=== PATIENT | male | born 1950 | race Caucasian/White ===

== ENCOUNTER 2020-06-05 03:44 | Inpatient (IN) | payer OTHER ==
[~2020-06-05] VITALS: Ht 190.5 cm; Wt 120.9 kg
[2020-06-05] VITALS (16 sets, daily range): BP systolic 87–134; BP diastolic 53–88
--- NOTE | 2020-06-05 04:36 | EKG ---
[facility] ED [facility] [place] [id number] Test Date: 2020-06-05 Test Time: 04:02:00 Pat Name: ARCHANA VÁZQUEZ Department: Room: Gender: M Business Manager: : [id number] Requested By: ARTEMIO MCLEAN Order Number: [id number] Reading MD: Neville Pena MD Measurements Intervals [place] Rate: 102 P: DE: QRS: 138 QRSD: 132 T: -3 QT: 352 QTc: 463 Interpretive Statements ATRIAL FIBRILLATION RBBB Electronically Signed On 06-06-2020 12:54:48 CDT by Neville Pena MD
--- NOTE | 2020-06-05 04:37 | PHYS DOC ---
Past History Past Medical History: A-Fib, DVT, Hypertension, Other Additional Past Medical Histor: PULMONARY EMBOLUS Smoking: Quit Greater Than 1 Year Alcohol Use: None Drug Use: None Social History INMATE General Adult EDM: Chief Complaint: COUGH HPI: HPI: Patient is a 70-year-old inmate from [facility] was brought here for evaluation of cough and trouble breathing for several days. Patient al so complained of a sore on his left buttock since yesterday. Patient was tested positive for COVID-19 2 weeks ago, he was just transferred from [facility] to [facility] due to the COVID-19 infection yesterday. Patient denies any chest pain. Patient denies any fever. Patient has history of atrial fibrillation, hypertension, prostrate problem. Patient is on aspirin, terazosin, lisinopril. Patient is a former smoker, he is not on oxygen at home. Review of Systems: Review of Systems: Constitutional: Denies fever or chills Eyes: Denies change in visual acuity HENT: Denies nasal congestion or sore throat Respiratory: Positive for cough and shortness of breath Cardiovascular: Denies chest pain or edema GI: Denies abdominal pain, nausea, vomiting, bloody stools or diarrhea : Denies dysuria Musculoskeletal: Denies back pain or joint pain Integument: positive for buttock ulcer Neurologic: Denies headache, focal weakness or sensory changes Endocrine: Denies polyuria or polydipsia Lymphatic: Denies swollen glands Psychiatric: Denies depression or anxiety Heart Score: Risk Factors: Risk Factors: DM, Current or recent (<one month) smoker, HTN, HLP, family history of CAD, obesity. Risk Scores: Score 0 - 3: 2.5% MACE over next 6 weeks - Discharge Home Score 4 - 6: 20.3% MACE over next 6 weeks - Admit for Clinical Observation Score 7 - 10: 72.7% MACE over next 6 weeks - Early Invasive Strategies Physical Exam: PE: Constitutional: Well developed, well nourished, no acute distress, non-toxic appearance. [] HENT: Normocephalic, atraumatic, bilateral external ears normal, oropharynx moist, no oral exudates, nose normal. [] Eyes: PERRLA, EOMI, conjunctiva normal, no discharge. [] Neck: Normal range of motion, no tenderness, supple, no stridor. [] Cardiovascular: tachycardai, irregular rhythm, no murmur [] Lungs & Thorax: Bilateral breath sounds with crackles at lung bases, no respiratory distress. Abdomen: Bowel sounds normal, soft, no tenderness, no masses, no pulsatile masses. [] Skin: Warm, dry, an area of about 3 cm by 3cm decubitus ulcer, stage 2 on the medial part of left buttock, tender to palpation, no purulent discharge, no induration. Back: No tenderness, no CVA tenderness. [] Extremities: No tenderness, no cyanosis, no clubbing, ROM intact, bilateral lower extremities edema 2 plus. Neurologic: Alert and oriented X 3, normal motor function, normal sensory function, no focal deficits noted. [] Psychologic: Affect normal, judgement normal, mood normal. [] EKG: EKG: EKG was done at 4:02, heart rate of 102 beats per minutes, atrial fibrillation, no ST segment elevation Radiology/Procedures: Radiology/Procedures: Chest x-ray showed bilateral lower lobe infiltration more on the left side. Course & Med Decision Making: Course & Med Decision Making Pertinent Labs and Imaging studies reviewed. (See chart for details) Patient is a 70-year-old male with COVID-19 infection presented with cough trouble breathing. Patient also has cellulitis of the left buttock area. Discussed with Dr. Ibarra who agreed to admit the patient at this hospital. Dev Disclaimer: Dev Disclaimer: This electronic medical record was generated, in whole or in part, using a voice recognition dictation system. Departure Departure: Impression: Primary Impression: Pneumonia due to COVID-19 virus Additional Impressions: Hypoxia Cellulitis of buttock, left Disposition: ADMITTED INPATIENT Admitting Physician: Kev Maldonado Condition: STABLE Referrals: PCP,NO (PCP) Justification of Admission: Justification of Admission: Justification of Admission Dx: Yes (COVID-19 PNEUMONIA, HYPOXIA) ARTEMIO MCLEAN DO Jun 05, 2020 04:37
[2020-06-05 04:41] LABS: BASO % 0 % (0-3); EOS % 0 % (0-3); HEMATOCRIT 40.4 % (39.0-53.0); HEMOGLOBIN 13.7 g/dL (13.0-17.5); LYMPH # 0.5 x10^3/uL (1.0-4.8); LYMPH % 9 % (24-48); MEAN CORPUSCULAR HEMOGLOBIN 33 pg (25-35); MEAN CORPUSCULAR HGB CONC 34 g/dL (31-37); MEAN CORPUSCULAR VOLUME 96 fL (79-100); MONO # 0.7 x10^3/uL (0.0-1.1); MONO % 13 % (0-9); NEUT # 4.5 x10^3uL (1.8-7.7); NEUT % 78 % (31-73); PLATELET COUNT 115 x10^3/uL (140-400); RED CELL DISTRIBUTION WIDTH 12.7 % (11.5-14.5); WHITE BLOOD COUNT 5.8 x10^3/uL (4.0-11.0)
[2020-06-05 04:43] LABS: CALCIUM 8.6 mg/dL (8.5-10.1); GFR 74.1; POTASSIUM 3.6 mmol/L (3.5-5.1)
[2020-06-05 04:55] LABS: ALBUMIN 3.4 g/dL (3.4-5.0); ALBUMIN/GLOBULIN RATIO 1.2 (1.0-1.7); MAGNESIUM 1.7 mg/dL (1.8-2.4); TOTAL BILIRUBIN 1.7 mg/dL (0.2-1.0); TOTAL PROTEIN 6.3 g/dL (6.4-8.2)
[2020-06-05] MEDS ORDERED: IV NORMAL SALINE 500ML 500 ML ONE ×2 (05:28→05:31)
[2020-06-05] MEDS ORDERED: IV NORMAL SALINE 50ML 50 ML ONE (05:28)
[2020-06-05] MEDS ORDERED: PIPERACILLIN/TAZOBACTAM 3.375 GM VIAL IV ONE (05:29)
[2020-06-05] MEDS ORDERED: VANCOMYCIN 1 GM VIAL. ONE ×2 (05:29→05:31)
[2020-06-05] MEDS ORDERED: ONDANSETRON PF 4 MG/2 ML VIAL. IVP PRN (05:30)
[2020-06-05] MEDS ORDERED: VANCOMYCIN 1 GM in IV NORMAL SALINE 250ML 250 ML IV ONE (05:30)
[2020-06-05] MEDS ORDERED: PIPERACILLIN/TAZOBACTAM 3.375 GM in IV NORMAL SALINE 50ML 50 ML IV ONE (06:00)
[2020-06-05] MEDS ORDERED: HYDROcodone/APAP 5/325MG 1 TAB TABLET PO ONE (06:00)
[2020-06-05] MEDS ORDERED: IV NORMAL SALINE 1,000ML 1,000 ML IV SCH (06:00)
[2020-06-05] MEDS ORDERED: VANCOMYCIN 2 GM in IV NORMAL SALINE 500ML 500 ML IV ONE (06:00)
--- NOTE | 2020-06-05 07:32 | RAD ---
EXAM: AP View of the chest DATE: 06/05/2020 4:27 AM INDICATION: Reason: cough, positive for COVID-19 / Spl. Instructions: / History: COMPARISON: No Prior FINDINGS/ IMPRESSION: Cardiomegaly. Bilateral perihilar and lung base airspace opacities may represent atelectasis or developing consolidation. Small left pleural effusion. No pneumothorax. Constellation of findings may represent infectious/inflammatory process such as pneumonia although pulmonary edema is also a primary consideration. Electronically signed by: Ok Melara MD (06/05/2020 7:29 AM) [id number]
--- NOTE | 2020-06-05 08:40 | NUR ---
PATIENT ARRIVED TO UNIT VIA EMS. PATIENT IS ACCOMPANIED BY [facility] GUARD. PT IS CALM COMPLIANT AT TIME OF ASSESSMENT. VS OBTAINED AND ARE STABLE. DR CAUSEY IS NOTIFIED OF ADMISSION.ORDERERS RECEIVED FOR CTA, JACOB. PATIENT IS RESTING IN ROOM EATING BREAKFAST AT THIS TIME. WILL CONTINUE TO MONITOR.
[2020-06-05] MEDS ORDERED: PROAIR RESPICL90 MCG IH (10:40)
[2020-06-05] MEDS ORDERED: PRAZ5CAP2 PO (10:40)
[2020-06-05] MEDS ORDERED: ASPI325T8 PO (10:40)
[2020-06-05] MEDS ORDERED: LISI-338 PO (10:40)
[2020-06-05] MEDS ORDERED: FAMO20TA5 PO (10:40)
[2020-06-05] MEDS ORDERED: POTA20TA4 PO (10:40)
[2020-06-05] MEDS ORDERED: ALBU0.63 NEB (10:40)
[2020-06-05] MEDS ORDERED: FURO-68 PO (10:40)
[2020-06-05] MEDS ORDERED: METO-239 PO (10:40)
[2020-06-05] MEDS ORDERED: IOHEXOL 350 MG/ML 100 ML VIAL. IV ONE (11:00)
[2020-06-05] MEDS ORDERED: ENOXAPARIN 40 MG/0.4 ML SYRINGE. SQ SCH (11:00)
[2020-06-05] MEDS ORDERED: CONTRAST GIVEN. MC PRN (11:15)
[2020-06-05] MEDS ORDERED: NON FORMULARY ITEM (Albuterol Sulfate (Albuterol Sulfate Neb Soln) 1 VIAL) NEB SCH (13:45)
[2020-06-05] MEDS ORDERED: DIGOXIN IV 500 MCG/2 ML AMPUL. IV ONE (14:00)
[2020-06-05] MEDS: FUROSEMIDE 40 MG TABLET PO SCH (14:00)
[2020-06-05] MEDS: PIPERACILLIN/TAZOBACTAM 3.375 GM in IV NORMAL SALINE 50ML 50 ML IV SCH ×2 (14:00→22:13)
[2020-06-05] MEDS ORDERED: ALBUTEROL SULFATE 8GM INHALER. INH PRN (14:15)
--- NOTE | 2020-06-05 15:19 | NUR ---
PATIENTS HR REMAINS ELEVATED AFTER 500MCG OF DIGOXIN. PT IS STILL SOB, HAS A TEMP OF 101.1. PATIENT HAS BELONGINGS WITH SELF IN ICU. WILL CONTINUE TO MONITOR. REPORT GIVEN TO SLY PERRIN
[2020-06-05] MEDS ORDERED: dilTIAZem VIAL 125 MG in IV NORMAL SALINE 100ML 100 ML IV PRN (15:30)
[2020-06-05] MEDS ORDERED: dilTIAZem 25 MG/5 ML VIAL IVP ONE (15:30)
--- NOTE | 2020-06-05 15:49 | NUR ---
consulted [facility] cardiology, waiting for a phone call back.
--- NOTE | 2020-06-05 16:03 | RAD ---
Study: CT CHEST WITH CONTRAST - PULMONARY ANGIOGRAM History: Shortness of breath, rule out PE Comparison: Chest radiograph same day Technique: Helical CT of the chest performed after the administration of 100 mL Omnipaque 350 intravenous contrast and timed for angiographic evaluation of the pulmonary arteries per PE protocol. Coronal and sagittal 3D MIP reformations were obtained. One or more of the following individualized dose reduction techniques were utilized for this examination: 1. Automated exposure control 2. Adjustment of the mA and/or kV according to patient size 3. Use of iterative reconstruction technique. Findings: Pulmonary Arteries: Contrast bolus is adequate. There is no acute pulmonary embolism. The main pulmonary artery is normal in caliber. Heart/Systemic Vasculature: Mild cardiomegaly. No pericardial effusion. Thoracic aorta is normal in caliber. Mild aortic calcifications. Direct origin of the left vertebral artery from the aortic arch. Mediastinum: There are mildly enlarged mediastinal lymph nodes. For example an enlarged prevascular lymph node and adjacent enlarged right paratracheal lymph node both measuring 1 cm short axis (image 27, series 3). Additional enlarged low paratracheal, AP window, and subcarinal lymph nodes. Lungs: There are diffuse subpleural ground glass opacities and reticulation, greatest in the lower lobes. Mild paraseptal emphysema in the apices and subpleural cysts in the mid and lower lungs. The airways are clear. There is no pleural effusion. Neck/Axilla/Body Wall: Thyroid gland is normal. No axillary lymphadenopathy. Upper Abdomen: The spleen is enlarged measuring 15 cm in AP diameter. There are bilateral simple renal cysts, incompletely evaluated. Bones: No acute osseous abnormality. There is mild degenerative disc disease the thoracic spine. There is a small sclerotic lesion in the right clavicular head, nonspecific. Chronic deformity of the right mid and distal clavicle. IMPRESSION: 1. No acute pulmonary embolism. 2. Bilateral basilar predominant subpleural groundglass opacities and reticular changes with subpleural cysts, likely reflecting interstitial lung disease. Mild paraseptal emphysema in the apices. 3. Mildly enlarged mediastinal lymph nodes. 4. Mild cardiomegaly. Electronically signed by: Wanda Tamez MD (06/05/2020 3:59 PM) [id number]
--- NOTE | 2020-06-05 16:20 | HP ---
ADMIT DATE: 06/05/2020 HISTORY OF PRESENT ILLNESS: The patient is a 70-year-old male patient, an inmate at [facility], who moved recently from [facility]. The patient is a 70-year-old male patient who was transferred from [facility] in [place]. He has tested positive about 9 days ago for COVID-19 and apparently many inmates are brought here to the house at [facility] where they can be kept in quarantine according to the guard that comes with him. He basically came to the Emergency Room complaining of generalized weakness and shortness of breath that has been going on for almost 2 months. He has also had orthopnea, but denied any paroxysmal nocturnal dyspnea. He did have some cough that is mostly dry. He also complained of a sore on his left buttock that started recently. He was just transferred from [facility] to [facility] due to COVID-19 infection. He denied any chest pain, denied any fever. He is known to have atrial fibrillation, hypertension, bronchial asthma/COPD. He has also history of DVT and pulmonary emboli. He was extensively investigated in the Emergency Room. His lab work showed mild hyponatremia and slightly elevated bilirubin. His beta natriuretic peptide was elevated at 1773. His white cell count, hemoglobin and hematocrit are normal. His platelets are low at 115. His D-dimer was slightly elevated at 0.71 and his first set of cardiac enzymes showed troponin to be 0.075. His CK was high at 5785 and his lactic acid was mildly elevated at 2.1. His chest x-ray showed cardiomegaly and bilateral perihilar and lung base airspace opacities, may represent atelectasis or developing consolidation. Has small left pleural effusion, no pneumothorax. The constellation of findings may represent infectious inflammatory process such as pneumonia, although pulmonary edema is also a primary consideration and he was given 500 mL of normal saline, started on IV vancomycin and Zosyn and was admitted for further evaluation and treatment. PAST MEDICAL HISTORY: Significant for hypertension, bronchial asthma, chronic obstructive pulmonary disease/emphysema, DVT and pulmonary emboli and atrial fibrillation as well as questionable congestive heart failure. PAST SURGICAL HISTORY: Unremarkable. ALLERGIES: He has no known drug allergies. MEDICATIONS: He is currently on following medications: He is on albuterol sulfate 0.63 mg per 3 mL by nebulizer 3 times a day, albuterol sulfate for ProAir 2 puffs every 4-6 hours, prazosin 5 mg at bedtime, metoprolol succinate 25 mg twice a day, lisinopril 5 mg once a day. He is on aspirin 325 mg once a day, potassium chloride 20 mEq twice a day, furosemide 40 mg twice a day and famotidine 20 mg twice a day. FAMILY HISTORY: He had one sister at the age of 59 because of congestive heart failure. The other sister at the age of 63. One brother at age 59 because of complication of diabetes and one brother at age of 52 due to motor vehicle accident. One younger brother still alive at the age of 62 and seemingly healthy. His father at the age of 69 because of complication of COPD and mother at age of 59 because of ovarian cancer. SOCIAL HISTORY: He is , has 2 daughters and 1 son. He quit smoking in 2003. Does not drink alcohol, but has used marijuana and mushrooms before. He was working in [employer]; however, he has been in shelter for 22 years. He apparently was followed by eating disorder specialist by the name of Dr. Bishop at [facility]. Most of the information is gained from the patient himself. PHYSICAL EXAMINATION: GENERAL: On arrival to the Emergency Room, he was clearly markedly tachypneic, but there was no pallor, jaundice or cyanosis. No lymphadenopathy, no thyromegaly. No jugular venous distention. Mild bilateral limb edema. VITAL SIGNS: His heart rate was 116, blood pressure was 121/77, temperature was 98.1, respiratory rate was 48 and his oxygen saturation was 88% on room air that has improved to 96% on 3 liters of oxygen. HEAD, EYES, EARS, NOSE AND THROAT: Showed normocephalic, atraumatic. NECK: Supple. HEART: Normal first and second heart sounds. No gallop or murmur. CHEST: Shows central trachea, equal bilateral expansion, air entry, vesicular sounds with bilateral basal crepitation, more so on the left than right. I could not appreciate any rhonchi. ABDOMEN: Distended, soft, nontender. NEUROLOGIC: He is awake, alert, responding appropriately. All his cranial nerves are intact. EXTREMITIES: He moves extremities without difficulty. LABORATORY DATA: His lab work on admission showed white cell count 5800, hemoglobin 13.7, hematocrit 40, MCV 96, and platelet count of 115,000. His chemistry showed serum sodium 131, potassium 3.6, chloride 97, bicarbonate 20, anion gap of 14, BUN 14, creatinine 1, estimated GFR was 74 mL per minute, his glucose was 109, calcium was 8.6, magnesium was 1.7. Total bilirubin, AST are elevated. ALT and alkaline phosphatase are normal. His BNP was high at 1773. Total protein was 6.3, albumin 3.4. His prothrombin time, INR and aPTT were normal. His D-dimer was 0.71. His chest x-ray showed the patient has cardiomegaly and bilateral perihilar and lung base airspace opacities, may represent atelectasis or developing consolidation, small left side pleural effusion, no pneumothorax. Constellation of finding may represent infectious/inflammatory process such as pneumonia, although pulmonary edema is also a primary consideration. ASSESSMENT: In summary, this is a 70-year-old male patient who was admitted with COVID-19 pneumonia, perhaps superimposed on healthcare-associated pneumonia. He is known to have congestive heart failure, likely diastolic in nature. Other medical problems include hypertension, DVT and pulmonary embolism as well as atrial fibrillation. He has also an area of erythema and induration on his abdiel cleft towards the coccyx with no areas of fluctuation. He was treated with IV vancomycin and piperacillin; however, when I saw him, his skin was markedly erythematous concerning for red-man syndrome. PLAN: My plan is to arrange for him to have a CT, CT angio and also switch his vancomycin to Zyvox. Continue with IV Zosyn. Continue with steroids and get Cardiology consult. He has also probably non-ST segment elevation myocardial infarction as his troponin was elevated; however, EKG showed that he was in atrial fibrillation with no ST segment elevation. JANN CAUSEY MD DR: ERIK/katiuska JOB#: [id number] / [id number]
[2020-06-05] MEDS: ENOXAPARIN ** NOTE DOSE ** SYRINGE SQ SCH (20:37)
[2020-06-05] MEDS: FAMOTIDINE 20 MG TABLET PO SCH (20:37)
[2020-06-05] MEDS: POTASSIUM CHLORIDE 20 MEQ TABLET.ER. PO SCH (20:37)
[2020-06-05] MEDS ORDERED: METOPROLOL SUCC 24HR ER 25 MG TAB.ER.24H. PO SCH (21:00)
[2020-06-05] MEDS ORDERED: PRAZOSIN 5 MG CAPSULE. PO SCH (21:00)
[2020-06-06] VITALS (27 sets, daily range): BP systolic 89–119; BP diastolic 7–90
[2020-06-06] MEDS: PIPERACILLIN/TAZOBACTAM 3.375 GM in IV NORMAL SALINE 50ML 50 ML IV SCH ×3 (06:06→22:47)
--- NOTE | 2020-06-06 08:17 | PDOC2 ---
CARDIAC CONSULT DATE OF CONSULT DOS: DATE: 06/06/20 TIME: 08:08 REASON FOR CONSULT Reason for Consult Arrhythmia REFERRING PHYSICIAN Referring Physician Dr. Maldonado SOURCE Source: Chart review, Patient HPI History of Present Illness This is a 70-year-old inmate from [facility] was brought here for evaluation of cough and difficulty breathing for several days. Was noted in AFIB with RVR, which prompted this consult. Was placed on Cardizem gtt and rate is now controlled. Is COVID +. He denies any chest pain, palpitations, dizziness, diaphoresis, or nausea/vomiting. PAST MEDICAL HISTORY Cardiovascular: AFIB, CHF, HTN, hyperipidemia Pulmonary: Pulmonary embolus (DVT) GI: GERD Musculoskeletal: Osteoarthritis Renal/: Benign prostatic enlarg. PAST SURGICAL HISTORY Past Surgical History: No pertinent history FAMILY HISTORY Family History: Other (no pertinent hx) SOCIAL HISTORY Smoke: No ALCOHOL: none Drugs: None Lives: Roommate (incarcerated- [facility]) CURRENT MEDICATIONS Current Medications Current Medications Vancomycin HCl 1 gm/Sodium Chloride 250 ml @ 250 mls/hr 1X ONCE IV ; Start 06/05/20 at 05:30; Stop 06/05/20 at 06:29; Status UNV Piperacillin Sod/ Tazobactam Sod 3.375 gm/Sodium Chloride 50 ml @ 100 mls/hr 1X ONCE IV Last administered on 06/05/20at 05:30; Start 06/05/20 at 06:00; Stop 06/05/20 at 06:29; Status DC Vancomycin HCl 2 gm/Sodium Chloride 500 ml @ 250 mls/hr 1X ONCE IV Last administered on 06/05/20at 06:00; Start 06/05/20 at 06:00; Stop 06/05/20 at 07:59; Status DC Sodium Chloride 50 ml @ As Directed STK-MED ONCE .ROUTE ; Start 06/05/20 at 05:28; Stop 06/05/20 at 05:29; Status DC Sodium Chloride 500 ml @ As Directed STK-MED ONCE .ROUTE ; Start 06/05/20 at 05:28; Stop 06/05/20 at 05:29; Status DC Piperacillin Sod/ Tazobactam Sod (Zosyn) 3.375 gm STK-MED ONCE IV ; Start 06/05/20 at 05:29; Stop 06/05/20 at 05:29; Status DC Vancomycin HCl (Vancomycin) 1 gm STK-MED ONCE .ROUTE ; Start 06/05/20 at 05:29; Stop 06/05/20 at 05:29; Status DC Ondansetron HCl (Zofran) 4 mg PRN Q4HRS PRN IVP NAUSEA/VOMITING Last administered on 06/05/20at 05:45; Start 06/05/20 at 05:30; Stop 06/06/20 at 05:29; Status DC Sodium Chloride 1,000 ml @ 75 mls/hr [id number] IV Last administered on 06/05/20at 06:00; Start 06/05/20 at 06:00; Stop 06/05/20 at 15:21; Status DC Acetaminophen/ Hydrocodone Bitart (Lortab 5/325) 1 tab 1X ONCE PO Last administered on 06/05/20at 06:00; Start 06/05/20 at 06:00; Stop 06/05/20 at 06:01; Status DC Sodium Chloride 500 ml @ As Directed STK-MED ONCE .ROUTE ; Start 06/05/20 at 05:31; Stop 06/05/20 at 05:31; Status DC Vancomycin HCl (Vancomycin) 1 gm STK-MED ONCE .ROUTE ; Start 06/05/20 at 05:31; Stop 06/05/20 at 05:31; Status DC Enoxaparin Sodium (Lovenox 40mg Syringe) 40 mg Q24H SQ Last administered on 06/05/20at 11:00; Start 06/05/20 at 11:00; Stop 06/05/20 at 16:34; Status DC Iohexol (Omnipaque 350 Mg/ml) 100 ml 1X ONCE IV Last administered on 06/05/20at 11:00; Start 06/05/20 at 11:00; Stop 06/05/20 at 11:05; Status DC Info (Do NOT chart on this entry -- for MONITORING) 1 each PRN DAILY PRN MC SEE COMMENTS; Start 06/05/20 at 11:15; Stop 06/07/20 at 11:14 Linezolid 300 ml @ 300 mls/hr Q12HR IV Last administered on 06/05/20at 21:15; Start 06/05/20 at 21:00 Piperacillin Sod/ Tazobactam Sod 3.375 gm/Sodium Chloride 50 ml @ 100 mls/hr Q8HRS IV Last administered on 06/06/20at 06:06; Start 06/05/20 at 14:00 Dexamethasone (Decadron) 6 mg DAILYWBKFT PO ; Start 06/06/20 at 08:00 Aspirin (Daniela Aspirin) 325 mg DAILY PO ; Start 06/06/20 at 09:00 Famotidine (Pepcid) 20 mg BID PO Last administered on 06/05/20at 20:37; Start 06/05/20 at 21:00 Furosemide (Lasix) 40 mg BID92 PO ; Start 06/05/20 at 14:00 Lisinopril (Prinivil) 5 mg DAILY PO ; Start 06/06/20 at 09:00; Stop 06/05/20 at 15:22; Status DC Metoprolol Succinate (Toprol Xl) 25 mg BID PO ; Start 06/05/20 at 21:00; Stop 06/05/20 at 15:22; Status DC Potassium Chloride (Klor-Con) 20 meq BID PO Last administered on 06/05/20at 20:37; Start 06/05/20 at 21:00 Prazosin HCl (Minipress) 5 mg QHS PO ; Start 06/05/20 at 21:00; Stop 06/05/20 at 15:22; Status DC Non-Formulary Medication (Albuterol Sulfate (Albuterol Sulfate Neb Soln)) 1 vial PRN TID NEB ; Start 06/05/20 at 13:45; Status UNV Albuterol Sulfate (Ventolin Hfa Inhaler) 2 puff PRN Q4HRS PRN INH SHORTNESS OF BREATH; Start 06/05/20 at 14:15 Digoxin (Lanoxin) 500 mcg 1X ONCE IV Last administered on 06/05/20at 14:00; Start 06/05/20 at 14:00; Stop 06/05/20 at 14:02; Status DC Diltiazem HCl (Cardizem Iv Push) 25 mg 1X ONCE IVP Last administered on 06/05/20at 15:46; Start 06/05/20 at 15:30; Stop 06/05/20 at 15:32; Status DC Diltiazem HCl 125 mg/Sodium Chloride 125 ml @ 5 mls/hr CONT PRN IV SEE I/O REC ORD Last administered on 06/05/20at 15:48; Start 06/05/20 at 15:30 Enoxaparin Sodium (Lovenox 120mg Syringe) 120 mg Q12HR SQ Last administered on 06/05/20at 20:37; Start 06/05/20 at 21:00 Lactobacillus Rhamnosus (Culturelle) 1 cap BID PO ; Start 06/06/20 at 09:00 Active Scripts Active Reported Prazosin Hcl 5 Mg Capsule 1 Cap PO QHS Proair Respiclick (Albuterol Sulfate) 90 Mcg Aer.pow.ba 2 Puff IH PRN Q4-6HRS PRN Potassium Chloride (Potassium Chloride) 20 Meq Tablet.er 20 Meq PO BID Metoprolol Succinate ( Xl ) (Metoprolol Succinate) 25 Mg Tab.er.24h 1 Tab PO BID Lisinopril 5 Mg Tablet 1 Tab PO DAILY Lasix (Furosemide) 40 Mg Tablet 1 Tab PO BID92 Famotidine 20 Mg Tablet 1 Tab PO BID Aspirin 325 Mg Tablet 1 Tab PO DAILY Albuterol Sulfate Neb Soln (Albuterol Sulfate) 0.63 Mg/3 Ml Vial.neb 1 Vial NEB PRN TID ALLERGIES Allergies: Uncoded Allergies: NOT SURE WHAT HE IS ALLERGIC TO (Allergy, Unknown, 06/05/20) ROS Review of Systems 14 point ROS conducted with pertinent positives noted above HPI PHYSICAL EXAM General: Alert, Oriented X3, Cooperative, No acute distress HEENT: Atraumatic Lungs: Other (NC) Heart: Other (AFIB; rate controlled ) Abdomen: Soft Extremities: Normal pulses, Other (trace bilateral LE edema ) Neuro: Normal speech, Sensation intact Psych/Mental Status: Mental status NL, Mood NL MUSCULOSKELETAL: No deformity VITALS Vital Signs Vital Signs Date Time Temp Pulse Resp B/P (MAP) Pulse Ox O2 Delivery O2 Flow Rate FiO2 06/06/20 05:45 89 24 112/61 (78) 94 Nasal Cannula 2.0 06/06/20 05:03 98.7 LABS LABS Laboratory Tests Test 06/05/20 04:08 06/05/20 07:55 06/05/20 09:43 06/06/20 07:41 White Blood Count 5.8 x10^3/uL (4.0-11.0) Red Blood Count 4.20 x10^6/uL (4.30-5.70) Hemoglobin 13.7 g/dL (13.0-17.5) Hematocrit 40.4 % (39.0-53.0) Mean Corpuscular Volume 96 fL (79-100) Mean Corpuscular Hemoglobin 33 pg (25-35) Mean Corpuscular Hemoglobin Concent 34 g/dL (31-37) Red Cell Distribution Width 12.7 % (11.5-14.5) Platelet Count 115 x10^3/uL (140-400) Neutrophils (%) (Auto) 78 % (31-73) Lymphocytes (%) (Auto) 9 % (24-48) Monocytes (%) (Auto) 13 % (0-9) Eosinophils (%) (Auto) 0 % (0-3) Basophils (%) (Auto) 0 % (0-3) Neutrophils # (Auto) 4.5 x10^3uL (1.8-7.7) Lymphocytes # (Auto) 0.5 x10^3/uL (1.0-4.8) Monocytes # (Auto) 0.7 x10^3/uL (0.0-1.1) Eosinophils # (Auto) 0.0 x10^3/uL (0.0-0.7) Basophils # (Auto) 0.0 x10^3/uL (0.0-0.2) Prothrombin Time 11.1 SEC (9.4-11.4) Prothromb Time International Ratio 1.1 (0.9-1.1) Activated Partial Thromboplast Time 32 SEC (23-33) Sodium Level 131 mmol/L (136-145) Potassium Level 3.6 mmol/L (3.5-5.1) Chloride Level 97 mmol/L (98-107) Carbon Dioxide Level 20 mmol/L (21-32) Anion Gap 14 (6-14) Blood Urea Nitrogen 14 mg/dL (8-26) Creatinine 1.0 mg/dL (0.7-1.3) Estimated GFR (Cockcroft-Gault) 74.1 BUN/Creatinine Ratio 14 (6-20) Glucose Level 109 mg/dL (70-99) Lactic Acid Level 2.1 mmol/L (0.4-2.0) 1.0 mmol/L (0.4-2.0) Calcium Level 8.6 mg/dL (8.5-10.1) Magnesium Level 1.7 mg/dL (1.8-2.4) Total Bilirubin 1.7 mg/dL (0.2-1.0) Aspartate Amino Transf (AST/SGOT) 118 U/L (15-37) Alanine Aminotransferase (ALT/SGPT) 39 U/L (16-63) Alkaline Phosphatase 77 U/L (46-116) Troponin I Quantitative 0.075 ng/mL (0-0.055) 0.069 ng/mL (0-0.055) MI-Fih-S-Type Natriuretic Peptide 1773 pg/mL (0-124) Total Protein 6.3 g/dL (6.4-8.2) Albumin 3.4 g/dL (3.4-5.0) Albumin/Globulin Ratio 1.2 (1.0-1.7) D-Dimer (Natividad) 0.71 mg/L (0.00-0.50) Creatine Kinase 5785 U/L (39-308) Glucose (Fingerstick) 100 mg/dL (70-99) ASSESSMENT/PLAN Assessment/Plan 1. Acute respiratory failure with COVID PNA 2. PAFIB with RVR in setting of above; rate now controlled on Cardizem gtt. Not on OAC; on ASA only at facility 3. Mild acute on chronic probable diastolic CHF 4. Hypertension; controlled 5. Hyperlipidemia 6. H/o PE, DVT Recommendations Resume metoprolol for rate control. Will increase to 50mg BID Titrate off Cardizem gtt [id number] score 5 correlating with a 7.2% risk of stroke per year. Continue Lovenox therapy Discussed risks/benefits of OAC with warfarin therapy with. Would recommend given high [id number] score. Patient presently apprehensive as he had sister recently pass away from hemorrhagic stroke. Would like to think about it further. Outpatient echo when recovered from COVID. Ongoing pulmonary optimization ANNY NUNEZ APRN Jun 06, 2020 08:17
[2020-06-06] MEDS ORDERED: METOPROLOL TART IMMED RELEASE 50 MG TABLET PO SCH (09:00)
[2020-06-06] MEDS ORDERED: LISINOPRIL 5 MG TABLET. PO SCH (09:00)
[2020-06-06] MEDS: FUROSEMIDE 40 MG TABLET PO SCH ×2 (09:10→15:12)
[2020-06-06] MEDS: ASPIRIN 325 MG TABLET PO SCH (09:11)
[2020-06-06] MEDS: POTASSIUM CHLORIDE 20 MEQ TABLET.ER. PO SCH ×2 (09:11→21:12)
[2020-06-06] MEDS: FAMOTIDINE 20 MG TABLET PO SCH ×2 (09:11→21:12)
[2020-06-06] MEDS: METOPROLOL TART IMMED RELEASE 50 MG TABLET PO SCH ×2 (09:12→21:12)
[2020-06-06] MEDS: ENOXAPARIN ** NOTE DOSE ** SYRINGE SQ SCH ×2 (09:15→21:13)
[2020-06-06] MEDS: LACTOBACILLUS RHAMNOSUS GG 1 CAPSULE. PO SCH ×2 (09:16→21:11)
[2020-06-06] MEDS: DEXAMETHASONE 4 MG TABLET PO SCH (09:16)
--- NOTE | 2020-06-06 09:37 | NUR ---
ORDER RECEIVED FOR 50MG METOPROLOL BID, AND TO TITRATE OFF CARDIZEM DRIP.
--- NOTE | 2020-06-06 11:11 | NUR ---
IP: patient PUI for COVID-19, requires contact and airborne precautions.
--- NOTE | 2020-06-06 11:17 | EKG ---
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
--- NOTE | 2020-06-06 13:59 | PN ---
DATE: 06/06/2020 SUBJECTIVE: The patient is resting, slightly propped up in bed, clearly much improved. He is not huffing and buffing. His heart rate is much better controlled now, at 75 beats per minute. His blood pressure is actually borderline low at 107/44. On questioning him, he stated that he does feel much better. PHYSICAL EXAMINATION: GENERAL: When I examined him, was well and was clearly in no respiratory distress. No pallor, jaundice, cyanosis or thyromegaly. No jugular venous distention or limb edema. VITAL SIGNS: His heart rate was 75, blood pressure was 107/44, temperature 98.6, respiratory rate was 14 and oxygen saturation was 97% on 2 liters of oxygen. HEAD, EYES, EARS, NOSE, AND THROAT: Showed normocephalic, atraumatic. NECK: Supple. HEART: Showed normal first and second heart sounds. No gallop or murmur. CHEST: Showed central trachea, equal bilateral expansion, air entry, vesicular sounds. No crepitation or rhonchi. ABDOMEN: Distended, soft, nontender. NEUROLOGIC: He was definitely awake, alert, responding appropriately. All cranial nerves intact. His intake over the last 24 hours and output were incompletely recorded. No lab works were available done this morning; however, yesterday, his white cell count was 5800, hemoglobin 14, hematocrit 40, MCV 96, and platelet count 215,000. His serum sodium yesterday was 131, potassium 3.6, chloride 97, bicarbonate 20, anion gap of 14, BUN 14, creatinine 1, estimated GFR was 74 mL per minute. His calcium was 8.6. Magnesium was 1.7. Total bilirubin and AST were elevated. ALT and alkaline phosphatase were normal. ASSESSMENT: 1. COVID-19 pneumonia, perhaps superimposed. 2. Atrial fibrillation with rapid ventricular response. 3. Hypertension, questionable [id number] diastolic congestive heart failure, hyperlipidemia, history of deep venous thrombosis and pulmonary embolism. PLAN: Obviously to continue with IV antibiotic in the form of piperacillin, tazobactam as well as Linezolid continued with Lovenox for stroke prevention and DVT prophylaxis. Continue with dexamethasone. His diltiazem drip was discontinued. He is now on metoprolol 50 mg twice a day. The patient continued to be reluctant to go on Eliquis or Coumadin. We will discuss with him further. JANN CAUSEY MD DR: ERIK/katiuska JOB#: [id number] / [id number]
[2020-06-06 14:13] LABS: HEMATOCRIT 37.1 % (39.0-53.0); HEMOGLOBIN 12.5 g/dL (13.0-17.5); RED BLOOD COUNT 3.8 x10^6/uL (4.30-5.70); RED CELL DISTRIBUTION WIDTH 12.8 % (11.5-14.5); WHITE BLOOD COUNT 4.9 x10^3/uL (4.0-11.0)
[2020-06-07] VITALS (21 sets, daily range): BP systolic 99–133; BP diastolic 51–81
[2020-06-07] MEDS: PIPERACILLIN/TAZOBACTAM 3.375 GM in IV NORMAL SALINE 50ML 50 ML IV SCH ×3 (06:02→21:35)
[2020-06-07 06:35] LABS: CALCIUM 8.6 mg/dL (8.5-10.1); CREATININE 0.7 mg/dL (0.7-1.3); GFR 111.8; POTASSIUM 3.9 mmol/L (3.5-5.1)
[2020-06-07 06:41] LABS: ALBUMIN 2.7 g/dL (3.4-5.0); ALBUMIN/GLOBULIN RATIO 0.7 (1.0-1.7); TOTAL BILIRUBIN 0.5 mg/dL (0.2-1.0); TOTAL PROTEIN 6.5 g/dL (6.4-8.2)
[2020-06-07 06:48] LABS: HEMATOCRIT 40.6 % (39.0-53.0); RED BLOOD COUNT 4.26 x10^6/uL (4.30-5.70); WHITE BLOOD COUNT 5.1 x10^3/uL (4.0-11.0)
--- NOTE | 2020-06-07 08:49 | PDOC ---
CARDIO Progress Notes Date & Time Date of Service DATE: 06/07/20 TIME: 08:47 Time of Evaluation 07:20 Subjective Notes No chest pain, palpitations. Not more SOA Vitals Vitals Vital Signs Date Time Temp Pulse Resp B/P (MAP) Pulse Ox O2 Delivery O2 Flow Rate FiO2 06/07/20 08:31 Nasal Cannula 2.0 06/07/20 08:27 98.4 90 20 105/57 (73) 99 Weight Weight [ ] Input and Output I.O. Intake and Output 06/07/20 07:00 Intake Total 3870 ml Output Total 3300 ml Balance 570 ml Intake Oral 3170 ml IV Total 700 ml Output Urine Total 3300 ml # Voids 2 Laboratory Labs Laboratory Tests Test 06/05/20 09:43 06/06/20 07:41 06/06/20 13:38 06/07/20 06:05 D-Dimer (Natividad) 0.71 mg/L (0.00-0.50) Creatine Kinase 5785 U/L (39-308) Troponin I Quantitative 0.069 ng/mL (0-0.055) Glucose (Fingerstick) 100 mg/dL (70-99) White Blood Count 4.9 x10^3/uL (4.0-11.0) 5.1 x10^3/uL (4.0-11.0) Red Blood Count 3.80 x10^6/uL (4.30-5.70) 4.26 x10^6/uL (4.30-5.70) Hemoglobin 12.5 g/dL (13.0-17.5) 14.0 g/dL (13.0-17.5) Hematocrit 37.1 % (39.0-53.0) 40.6 % (39.0-53.0) Mean Corpuscular Volume 98 fL (79-100) 95 fL (79-100) Mean Corpuscular Hemoglobin 33 pg (25-35) 33 pg (25-35) Mean Corpuscular Hemoglobin Concent 34 g/dL (31-37) 34 g/dL (31-37) Red Cell Distribution Width 12.8 % (11.5-14.5) 13.0 % (11.5-14.5) Platelet Count 112 x10^3/uL (140-400) 121 x10^3/uL (140-400) Sodium Level 134 mmol/L (136-145) Potassium Level 3.9 mmol/L (3.5-5.1) Chloride Level 100 mmol/L (98-107) Carbon Dioxide Level 25 mmol/L (21-32) Anion Gap 9 (6-14) Blood Urea Nitrogen 11 mg/dL (8-26) Creatinine 0.7 mg/dL (0.7-1.3) Estimated GFR (Cockcroft-Gault) 111.8 BUN/Creatinine Ratio 16 (6-20) Glucose Level 131 mg/dL (70-99) Calcium Level 8.6 mg/dL (8.5-10.1) Total Bilirubin 0.5 mg/dL (0.2-1.0) Aspartate Amino Transf (AST/SGOT) 104 U/L (15-37) Alanine Aminotransferase (ALT/SGPT) 60 U/L (16-63) Alkaline Phosphatase 60 U/L (46-116) Total Protein 6.5 g/dL (6.4-8.2) Albumin 2.7 g/dL (3.4-5.0) Albumin/Globulin Ratio 0.7 (1.0-1.7) Microbiology Micro Microbiology 06/05/20 Gram Stain - Final, Resulted 06/05/20 Aerobic and Anaerobic Culture - Preliminary, Resulted 06/05/20 Blood Culture - Preliminary, Resulted NO GROWTH AFTER 2 DAYS... Physical Exams HEENT: Neck Supple W Full Motion Chest: Symmetric Lungs: Other (NC) Heart: irregularly irregular (AFIB, rate controlled) Abdomen: Other (obese) Neurology: alert, oriented, follow commands Assessment Assessment 1. Acute respiratory failure with COVID PNA 2. PAFIB with RVR; rate now controlled. anticoagulated with Lovenox. Remains in AFIB. Rate controlled with metoprolol 3. Mild acute on chronic probable diastolic CHF 4. Hypertension; controlled 5. Hyperlipidemia 6. H/o PE, DVT Recommendations Continue metoprolol for rate control. ASA therapy Anticoagulated with Lovenox [id number] score 5 correlating with a 7.2% risk of stroke per year. Apprehensive to be on long-term OAC Consider outpatient CV Outpatient echo when recovered from COVID Ongoing lung optimization Supportive care ANNY NUNEZ APRN Jun 07, 2020 08:49
[2020-06-07] MEDS: METOPROLOL TART IMMED RELEASE 50 MG TABLET PO SCH ×2 (09:07→20:32)
[2020-06-07] MEDS: FUROSEMIDE 40 MG TABLET PO SCH ×2 (09:07→15:14)
[2020-06-07] MEDS: FAMOTIDINE 20 MG TABLET PO SCH ×2 (09:07→20:31)
[2020-06-07] MEDS: LACTOBACILLUS RHAMNOSUS GG 1 CAPSULE. PO SCH ×2 (09:07→20:32)
[2020-06-07] MEDS: ASPIRIN 325 MG TABLET PO SCH (09:07)
[2020-06-07] MEDS: ENOXAPARIN ** NOTE DOSE ** SYRINGE SQ SCH ×2 (09:08→20:31)
[2020-06-07] MEDS: DEXAMETHASONE 4 MG TABLET PO SCH (09:09)
[2020-06-07] MEDS: POTASSIUM CHLORIDE 20 MEQ TABLET.ER. PO SCH ×2 (09:10→20:31)
--- NOTE | 2020-06-07 10:04 | NUR ---
ASK PT ABOUT ALLERGIES AND HE STATES AT THIS TIME THAT HE HAS NKDA,
--- NOTE | 2020-06-07 17:52 | NUR ---
PT ABLE TO AMBULATE AROUND ROOM BETTER AND REPORT DECREASED SOA TO MYSELF AND DR. CAUSEY. PT PROGRESSING TOWARDS GOALS.
--- NOTE | 2020-06-07 19:49 | PN ---
DATE: 06/07/2020 SUBJECTIVE: The patient is resting slightly propped up in bed, in no apparent respiratory distress. He is awake, alert. On questioning him, he stated he is doing extremely much better. He has regained his strength. He is now able to sit up. His heart rate has been consistently well controlled. His oxygen saturation was 97% on room air. OBJECTIVE: GENERAL: When I examined him, he looked well and was clearly in no apparent respiratory distress. No pallor, jaundice, cyanosis or thyromegaly. No jugular venous distension. No lower limb edema. VITAL SIGNS: His heart rate was 73, blood pressure was 101/61, temperature was 97.6, respiratory rate was 28 and oxygen saturation was 97% on room air. HEAD, EYES, EARS, NOSE AND THROAT: Showed normocephalic, atraumatic. NECK: Supple. HEART: Normal first and second heart sounds with no gallop, rub or murmur. CHEST: Showed central trachea, equal bilateral expansion, air entry, vesicular sounds. I could not appreciate any crepitation or rhonchi. ABDOMEN: Distended, soft, nontender. NEUROLOGIC: He was awake, alert, responding appropriately. All cranial nerves are intact. He moves extremities without difficulty. His intake was 2150, output was 1400. LABORATORY DATA: As of this morning, his white cell count was 5000, hemoglobin 14, hematocrit 40, MCV 95 and platelet count of 121,000. His chemistry showed a serum sodium of 134, potassium 3.9, chloride 100, bicarbonate 25, anion gap of 9, BUN 11, creatinine 0.7, estimated GFR was 111, glucose 131, calcium was 8.6. Total protein 6.5, albumin was 2.7. ASSESSMENT: 1. COVID-19 pneumonia with healthcare-associated pneumonia superimposed. 2. Atrial fibrillation with rapid ventricular response, now rate controlled. He is on Lovenox. 3. Hypertension. 4. Acute on chronic diastolic congestive heart failure. 5. Hyperlipidemia. 6. History of deep vein thrombosis and pulmonary embolism. PLAN: To continue with IV antibiotic. Continue with steroids, continue with Lovenox and famotidine for the DVT and GI prophylaxis. His metoprolol is now 50 mg twice a day and his heart rate is well controlled. He probably can be switched to oral antibiotic tomorrow and can be transferred to correctional facility. JANN CAUSEY MD DR: ERIK/katiuska JOB#: [id number] / [id number]
[2020-06-08] VITALS (10 sets, daily range): BP systolic 100–132; BP diastolic 59–76
--- NOTE | 2020-06-08 01:35 | NUR ---
Pt had a great shift, stated that he "feels so much better...like I am a new man! Everyone around here is wonderful." Pt remained in Afib but rate much improved ranging from 60-80's during shift, even dipped down into upper 50's when sleeping. Pt ate ice cream and box lunch independently for HS snack as he watched TV. Pt had good output, voiding clear yellow urine in urinal. Long-term blood thinner use discussed with pt (risk, benefits and side effects), pt seems okay with starting low dose Xarelto when leaving here. Pt remains handcuffed to bed with [facility] guard outside door.
[2020-06-08] MEDS: PIPERACILLIN/TAZOBACTAM 3.375 GM in IV NORMAL SALINE 50ML 50 ML IV SCH (05:34)
--- NOTE | 2020-06-08 08:00 | PDOC ---
CARDIO Progress Notes Date & Time Date of Service DATE: 06/08/20 TIME: 07:59 Time of Evaluation 07:59 Subjective Notes SOA improved. "feel like a new man" No chest pain, palpitations Vitals Vitals Vital Signs Date Time Temp Pulse Resp B/P (MAP) Pulse Ox O2 Delivery O2 Flow Rate FiO2 06/08/20 07:00 97.0 69 13 120/76 (91) 99 Nasal Cannula 2.0 Weight Weight [ ] Input and Output I.O. Intake and Output 06/08/20 07:00 Intake Total 1940 ml Output Total 3100 ml Balance -1160 ml Intake Oral 1190 ml IV Total 750 ml Output Urine Total 3100 ml # Bowel Movements 1 Laboratory Labs Laboratory Tests Test 06/06/20 13:38 06/07/20 06:05 White Blood Count 4.9 x10^3/uL (4.0-11.0) 5.1 x10^3/uL (4.0-11.0) Red Blood Count 3.80 x10^6/uL (4.30-5.70) 4.26 x10^6/uL (4.30-5.70) Hemoglobin 12.5 g/dL (13.0-17.5) 14.0 g/dL (13.0-17.5) Hematocrit 37.1 % (39.0-53.0) 40.6 % (39.0-53.0) Mean Corpuscular Volume 98 fL (79-100) 95 fL (79-100) Mean Corpuscular Hemoglobin 33 pg (25-35) 33 pg (25-35) Mean Corpuscular Hemoglobin Concent 34 g/dL (31-37) 34 g/dL (31-37) Red Cell Distribution Width 12.8 % (11.5-14.5) 13.0 % (11.5-14.5) Platelet Count 112 x10^3/uL (140-400) 121 x10^3/uL (140-400) Sodium Level 134 mmol/L (136-145) Potassium Level 3.9 mmol/L (3.5-5.1) Chloride Level 100 mmol/L (98-107) Carbon Dioxide Level 25 mmol/L (21-32) Anion Gap 9 (6-14) Blood Urea Nitrogen 11 mg/dL (8-26) Creatinine 0.7 mg/dL (0.7-1.3) Estimated GFR (Cockcroft-Gault) 111.8 BUN/Creatinine Ratio 16 (6-20) Glucose Level 131 mg/dL (70-99) Calcium Level 8.6 mg/dL (8.5-10.1) Total Bilirubin 0.5 mg/dL (0.2-1.0) Aspartate Amino Transf (AST/SGOT) 104 U/L (15-37) Alanine Aminotransferase (ALT/SGPT) 60 U/L (16-63) Alkaline Phosphatase 60 U/L (46-116) Total Protein 6.5 g/dL (6.4-8.2) Albumin 2.7 g/dL (3.4-5.0) Albumin/Globulin Ratio 0.7 (1.0-1.7) Microbiology Micro Microbiology 06/05/20 Gram Stain - Final, Resulted 06/05/20 Aerobic and Anaerobic Culture - Preliminary, Resulted 06/05/20 Antimicrobic Susceptibility - Preliminary, Resulted 06/05/20 Blood Culture - Preliminary, Resulted NO GROWTH AFTER 3 DAYS... Physical Exams HEENT: Neck Supple W Full Motion Chest: Symmetric Lungs: Other (NC) Heart: irregularly irregular (AFIB, rate controlled) Abdomen: Other (obese) Neurology: alert, oriented, follow commands Assessment Assessment 1. Acute respiratory failure with COVID PNA 2. PAFIB with RVR; rate now controlled. anticoagulated with Lovenox. Remains in AFIB. Rate controlled with metoprolol 3. Mild acute on chronic probable diastolic CHF 4. Hypertension; controlled 5. Hyperlipidemia 6. H/o PE, DVT Recommendations Continue metoprolol for rate control. Anticoagulated with Lovenox [id number] score 5 correlating with a 7.2% risk of stroke per year, which was discussed with patient. Is apprehensive to be on long-term OAC; low dose Eliquis had been discussed and patient is agreeable, although will need to determine if correctional facility will cover this. Patient declined warfarin therapy. Consider outpatient CV Outpatient echo when recovered from COVID Ongoing lung optimization Follow up in our office with Dr. Pena as scheduled. Supportive care ANNY NUNEZ APRN Jun 08, 2020 08:00
[2020-06-08] MEDS: LACTOBACILLUS RHAMNOSUS GG 1 CAPSULE. PO SCH (08:15)
[2020-06-08] MEDS: ASPIRIN 325 MG TABLET PO SCH (08:16)
[2020-06-08] MEDS: METOPROLOL TART IMMED RELEASE 50 MG TABLET PO SCH (08:16)
[2020-06-08] MEDS: DEXAMETHASONE 4 MG TABLET PO SCH (08:16)
[2020-06-08] MEDS: FUROSEMIDE 40 MG TABLET PO SCH (08:16)
[2020-06-08] MEDS: FAMOTIDINE 20 MG TABLET PO SCH (08:16)
[2020-06-08] MEDS: ENOXAPARIN ** NOTE DOSE ** SYRINGE SQ SCH (08:17)
[2020-06-08] MEDS: POTASSIUM CHLORIDE 20 MEQ TABLET.ER. PO SCH (08:17)
--- NOTE | 2020-06-08 09:30 | NUR ---
pt states "I feel so much better. I feel like a new man! Everyone has been great here. I haven't felt this good in about 8 months. I have been fighting this pneumonia for about 6 months." Plan is for pt to be dc'd back to [facility] today.
--- NOTE | 2020-06-08 12:29 | NUR ---
Reviewed discharge instructions with pt. Discharge packet prepared to accompany pt back to [facility]. IV dc'd without complications. Summer applied, per approval of correctional casework specialist. Pt ate lunch. Pt dressed and ready for transport to arrive to take him to [facility].
--- NOTE | 2020-06-08 13:05 | NUR ---
[facility] TRANSPORTATION HERE, PT WHEELED TO VEHICLE UPON DISCHARGE.
--- NOTE | 2020-06-08 13:20 | DS ---
DATE OF DISCHARGE: 06/08/2020 ATTENDING PHYSICIAN: Dr. Maldonado. FINAL DISCHARGE DIAGNOSES: 1. Community-acquired pneumonia. 2. COVID-19 pneumonia superimposed on bacterial pneumonia. 3. Essential hypertension. 4. Chronic obstructive pulmonary disease. 5. History of deep venous thrombosis. 6. Atrial fibrillation. 7. Remote history of congestive heart failure. HISTORY AND PHYSICAL: This is a 70-year-old white male transferred from the [facility]. He had been in [place], [place]. He is serving time ___ 2054. He had dyspnea, orthopnea and a positive COVID-19 swab 9 days ago. He was sent here for further treatment and evaluation. He also had an exacerbation of COPD. PHYSICAL EXAMINATION: Please see the dictated note. PERTINENT LABORATORY AND X-RAY STUDIES: On this admission, his hemoglobin was 13.7 g/dL with a white count of 5800. Electrolytes were within normal range. Potassium 3.9 mEq, nonfasting blood sugar 131. Troponin is slightly elevated at 0.69 on admission, CPK was 5700. Imaging studies showed CT of the chest, no evidence of acute pulmonary embolism, bilateral subpleural ground-glass opacities and reticular changes reflecting interstitial lung disease, emphysema is identified. Mildly enlarged mediastinal lymph nodes, mild cardiomegaly also identified. COURSE IN THE HOSPITAL: The patient was admitted. He was started on COVID-19 isolation and precautions. He received 3 full days of intravenous antibiotics, supplemental oxygen as well as a prophylaxis for blood clots. Cardiology Service saw him in consultation regarding his cardiac issues. Their recommendations are on the chart. The ventricular rate was controlled with oral beta blockade with metoprolol with his CHADS score high, anticoagulation was started. He was at first reluctant, but agreed to Eliquis. At this time, there is nothing acute then would consider outpatient echocardiogram, when recovered from his COVID infection, ongoing lung optimization, their recommendation is on the chart. Course in the hospital, then the patient was treated with 3 full days of IV antibiotics. Cardiology recommendation is on the chart. He did well. Clinically, he was improved by the fourth hospital day, the patient's vital signs were quite stable. He was afebrile. Blood pressure was 120/76, pulse is 69, irregularly irregular, controlled. Oxygen saturation 99% on 2 liters nasal cannula. He is discharged back to the [facility]. He will continue his albuterol inhaler, Lasix, lisinopril, metoprolol, potassium, and prazosin dose unchanged. We did start Eliquis low dose 2.5 mg b.i.d. for the next 6 months. In addition, we recommended 7 more days of Augmentin 875 one p.o. b.i.d. His prognosis is fair. He was discharged then from our hospital in stable condition with secure transport [facility]. GUNNER AMADO MD DR: FRANCISCO/katiuska JOB#: [id number] / [id number]
[2020-06-08] MEDS ORDERED: LINEZOLID 600 MG TABLET PO SCH (21:00)
== END 2020-06-08 13:05 | disposition home or self-care (01) | DRG 177 ==
LOC: ER 03:44 → 1 SOUTH 05:11 → EEVIPCON 05:11 → ICU 15:17 → UNDODISIN 06-08 13:05
PROVIDERS: ADMIT Internal Medicine; ATTEND Internal Medicine
DX: U07.1 COVID-19 (principal); J12.89 Other viral pneumonia; I50.33 Acute on chronic diastolic (congestive) heart failure; J96.01 Acute respiratory failure with hypoxia; E87.1 Hypo-osmolality and hyponatremia; L03.317 Cellulitis of buttock; R17 Unspecified jaundice; E78.5 Hyperlipidemia, unspecified; K21.9 Gastro-esophageal reflux disease without esophagitis; I11.0 Hypertensive heart disease with heart failure; I48.0 Paroxysmal atrial fibrillation; M19.90 Unspecified osteoarthritis, unspecified site; J43.9 Emphysema, unspecified; Y95 Nosocomial condition; Z79.01 Long term (current) use of anticoagulants; Z79.82 Long term (current) use of aspirin; Z82.49 Family history of ischemic heart disease and other diseases of the circulatory system; Z82.5 Family history of asthma and other chronic lower respiratory diseases; Z83.3 Family history of diabetes mellitus; Z86.711 Personal history of pulmonary embolism; Z86.718 Personal history of other venous thrombosis and embolism; Z87.891 Personal history of nicotine dependence
CPT/HCPCS: 36415; 71045; 71275; 80053; 82550; 82947; 83605; 83735; 83880; 84484; 85025; 85027; 85379; 85610; 85730; 87040; 87071; 87075; 93005; 96365; 96366; 96375; J1160; J1650; J2020; J2405; J2543; J3370; J3490; J7040; J7613; J8540; Q9967; 99285-25; J7030; U0003-CS